=== PATIENT | female | born 1940 ===

== ENCOUNTER 2018-10-25 19:10 | Observation (INO) | payer MEDICAID ==
[2018-10-25 21:19] LABS: BASO # 0.1 K/uL (0.0-0.2); BASO % 1.3 % (0.0-2.0); EOS # 0.6 K/uL (0.0-0.7); EOS % 7.4 % (0.0-4.0); HEMOGLOBIN 13.1 g/dL (12.0-16.0); LYMPH # 1.7 K/uL (1.0-4.3); LYMPH % 22.1 % (20.0-40.0); MEAN CELL VOLUME 80.3 fl (81.0-99.0); MEAN CORPUSCULAR HEMOGLOBIN 25.9 pg (27.0-31.0); MEAN CORPUSCULAR HGB CONC 32.2 g/dL (33.0-37.0); MEAN PLATELET VOLUME 8.5 fl (7.2-11.7); MONO # 0.7 K/uL (0.0-0.8); MONO % 8.5 % (0.0-10.0); NEUT # 4.7 K/uL (1.8-7.0); NEUT % 60.7 % (50.0-75.0); RBC 5.05 Mil/uL (3.80-5.20); RED CELL DISTRIBUTION WIDTH 13.8 % (11.5-14.5); WHITE BLOOD COUNT 7.7 K/uL (4.8-10.8)
[2018-10-25] MEDS ORDERED: levoFLOXacin 750 mg in D5W 150 ML BAG IVPB STA (21:34)
--- NOTE | 2018-10-25 21:43 | ED PDOC ---
HPI: CCC, URI, Sore Throat Time Seen by Provider: 10/25/18 19:46 Chief Complaint (Nursing): Shortness Of Breath Chief Complaint (Provider): Cough History Per: Patient History/Exam Limitations: no limitations Onset/Duration Of Symptoms: Other (x1 week) Current Symptoms Are (Timing): Still Present Associated Symptoms: Cough Additional Complaint(s): 77 year old female, with a past medical history of HTN, diabetes, and high cholesterol, presents to the ED reporting cough with productive white phlegm for a week associated with chest tightness. Patient is also reporting rhinorrhea, subjective fever, chills, and x2 episodes of intermittent posttussive vomiting. She denies hemoptysis and diarrhea. Patient states she saw her doctor last Thursday who prescribed Azithromycin and cough medication with no improvement. PMD: Dr. Clint Leo Past Medical History Reviewed: Historical Data, Nursing Documentation, Vital Signs Vital Signs: Last Vital Signs Temp 97.7 F 10/25/18 19:30 Pulse 80 10/25/18 19:30 Resp 18 10/25/18 19:30 BP 133/70 10/25/18 19:30 Pulse Ox 96 10/25/18 19:30 - Medical History PMH: Diabetes, HTN, Hypercholesterolemia - Surgical History Surgical History: No Surg Hx - Family History Family History: States: No Known Family Hx - Social History Current smoker - smoking cessation education provided: No - Allergies Allergies/Adverse Reactions: Allergies Allergy/AdvReac Type Severity Reaction Status Date / Time No Known Allergies Allergy Verified 10/25/18 19:30 Review of Systems ROS Statement: Except As Marked, All Systems Reviewed And Found Negative Constitutional: Positive for: Fever (subjective), Chills ENT: Positive for: Other (Rhinorrhea) Cardiovascular: Positive for: Chest Pain (chest tightness) Respiratory: Positive for: Cough. Negative for: Hemoptysis Gastrointestinal: Positive for: Vomiting. Negative for: Diarrhea Physical Exam - Reviewed Nursing Documentation Reviewed: Yes Vital Signs Reviewed: Yes - Physical Exam Appears: Positive for: No Acute Distress (tired appearing) Skin: Positive for: Warm, Dry, Pallor ENT: Positive for: Pharynx Is (clear with no exudates) Respiratory: Positive for: Normal Breath Sounds. Negative for: Rales, Rhonchi, Wheezing, Respiratory Distress - Laboratory Results Result Diagrams: 10/25/18 21:15 - ECG O2 Sat by Pulse Oximetry: 96 (RA) Pulse Ox Interpretation: Normal Medical Decision Making Medical Decision Making: Initial Impression: cough Differential includes but not limited to bronchitis, pneumonia, flu, viral illness, and URI. Initial Plan: --ECG --CMP --Lact acid stat --CBC --Chest X-ray --Levaquin 750mg IV --Blood culture --Influenza A B stat Scribe Attestation: Documented by Blaise Allen acting as a scribe for Dede Miller MD. Provider Scribe Attestation: All medical record entries made by the Scribe were at my direction and personally dictated by me. I have reviewed the chart and agree that the record accurately reflects my personal performance of the history, physical exam, medical decision making, and the department course for this patient. I have also personally directed, reviewed, and agree with the discharge instructions and disposition. Disposition - Disposition
[2018-10-25] MEDS ORDERED: levoFLOXacin 750 mg in D5W 750 MG/150 ML BAG IVPB ONE (21:46)
[2018-10-25 22:31] LABS: ALB/GLOB RATIO 1.1 (1.0-2.1); ALBUMIN 4.1 g/dL (3.5-5.0); ALT/SGPT 15 U/L (9-52); AST/SGOT 19 U/L (14-36); BLOOD UREA NITROGEN 27 mg/dl (7-17); CALCIUM 9.7 mg/dL (8.4-10.2); GFR NON-AFRICAN AMERICAN > 60
[2018-10-26] MEDS ORDERED: Promethazine 6.25 MG/5 ML CUP PO PRN (06:33)
[2018-10-26] MEDS ORDERED: Albuterol HFA 90 mcg/actuation (8 g) INH PRN (06:33)
[2018-10-26] MEDS: Sodium Chloride 0.45% 1,000 ML IV SCH (06:47)
[2018-10-26] MEDS: Insulin Regular 100 units/ml SC SCH ×3 (07:24→21:16)
[2018-10-26] MEDS: Metoprolol Succinate 25 mg XL Tab PO SCH (08:35)
[2018-10-26] MEDS: Enoxaparin 40 mg Syringe SC SCH (08:36)
[2018-10-26] MEDS: Naproxen 500 MG TAB PO SCH ×2 (08:36→21:14)
[2018-10-26 08:58] LABS: HEMOGLOBIN 12.8 g/dL (12.0-16.0); MEAN CELL VOLUME 82.2 fl (81.0-99.0); MEAN CORPUSCULAR HEMOGLOBIN 26.3 pg (27.0-31.0); RBC 4.86 Mil/uL (3.80-5.20); RED CELL DISTRIBUTION WIDTH 13.9 % (11.5-14.5)
[2018-10-26] MEDS ORDERED: levoFLOXacin 750 mg in D5W 150 ML BAG IVPB SCH (09:00)
[2018-10-26 09:17] LABS: ALB/GLOB RATIO 1.1 (1.0-2.1); ALT/SGPT 29 U/L (9-52); AST/SGOT 22 U/L (14-36); BLOOD UREA NITROGEN 25 mg/dl (7-17); CALCIUM 9.4 mg/dL (8.4-10.2); GFR NON-AFRICAN AMERICAN > 60; HDL CHOLESTEROL 48 MG/DL (30-70)
[2018-10-26 09:24] LABS: LDL CHOLESTEROL 89 mg/dL (0-129)
--- NOTE | 2018-10-26 09:34 | CP.PCM.HP ---
<Jeannette Johnson - Last Filed: 10/26/18 16:59> History of Present Illness - History of Present Illness History of Present Illness: Pt is a 77 y/o male with hx of HTN, HLD, Asthma, and DM who presented to [facility] with complaints of productive cough and weakness x1 week. Pt states cough kept him up at night and he had one episode of vomiting after profuse coughing. Denies chest pain, sob, headache, n/v/d, dysuria, recent travel, sick contacts, or fever/chills. Pt was admitted for Bronchitis vs pnu vs viral illness. Present on Admission - Present on Admission Any Indicators Present on Admission: No Past Patient History - Past Medical History & Family History Past Medical History?: Yes - Past Social History Smoking Status: Never Smoked - CARDIAC Hx Cardiac Disorders: Yes Hx Hypercholesterolemia: Yes Hx Hypertension: Yes - PULMONARY Hx Respiratory Disorders: No - NEUROLOGICAL Hx Neurological Disorder: No - HEENT Hx HEENT Problems: No - RENAL Hx Chronic Kidney Disease: No - ENDOCRINE/METABOLIC Hx Endocrine Disorders: Yes Hx Diabetes Mellitus Type 2: Yes - HEMATOLOGICAL/ONCOLOGICAL Hx Blood Disorders: No Hx AIDS: No Hx Hepatitis C: No Hx Human Immunodeficiency Virus (HIV): No - INTEGUMENTARY Hx Dermatological Problems: No - MUSCULOSKELETAL/RHEUMATOLOGICAL Hx Musculoskeletal Disorders: Yes Hx Falls: Yes (fell 1 month ago, denies any injuries) - GASTROINTESTINAL Hx Gastrointestinal Disorders: No - GENITOURINARY/GYNECOLOGICAL Hx Genitourinary Disorders: No - PSYCHIATRIC Hx Psychophysiologic Disorder: No Hx Substance Use: No - SURGICAL HISTORY Hx Surgeries: Yes Hx Cholecystectomy: Yes (4 yrs ago) - ANESTHESIA Hx Anesthesia: Yes Hx Anesthesia Reactions: No Meds Allergies/Adverse Reactions: Allergies Allergy/AdvReac Type Severity Reaction Status Date / Time No Known Allergies Allergy Verified 10/25/18 19:30 Physical Exam - Constitutional Appears: No Acute Distress - Head Exam Head Exam: NORMAL INSPECTION - Eye Exam Eye Exam: Normal appearance - ENT Exam ENT Exam: Mucous Membranes Moist - Neck Exam Neck exam: Positive for: Full Rom - Respiratory Exam Respiratory Exam: Rales (mild in R mid lobe), Rhonchi. absent: Wheezes - Cardiovascular Exam Cardiovascular Exam: REGULAR RHYTHM, +S1, +S2. absent: Systolic Murmur - GI/Abdominal Exam GI & Abdominal Exam: Normal Bowel Sounds, Soft. absent: Tenderness - Extremities Exam Extremities exam: Positive for: normal inspection. Negative for: pedal edema - Neurological Exam Neurological exam: Alert - Psychiatric Exam Psychiatric exam: Normal Affect - Skin Skin Exam: Normal Color Results - Vital Signs Recent Vital Signs: Last Vital Signs Temp 98.2 F 10/26/18 08:12 Pulse 58 L 10/26/18 08:35 Resp 18 10/26/18 08:12 BP 112/68 10/26/18 08:35 Pulse Ox 95 10/26/18 08:12 - Labs Result Diagrams: 10/26/18 08:40 10/26/18 08:40 Labs: Laboratory Results - last 24 hr 10/25/18 10/25/18 10/25/18 21:15 21:15 21:15 WBC 7.7 RBC 5.05 Hgb 13.1 Hct 40.6 MCV 80.3 L MCH 25.9 L MCHC 32.2 L RDW 13.8 Plt Count 217 MPV 8.5 Neut % (Auto) 60.7 Lymph % (Auto) 22.1 Foard % (Auto) 8.5 Eos % (Auto) 7.4 H Baso % (Auto) 1.3 Neut # (Auto) 4.7 Lymph # (Auto) 1.7 Foard # (Auto) 0.7 Eos # (Auto) 0.6 Baso # (Auto) 0.1 Sodium 142 Potassium 4.4 Chloride 112 H Carbon Dioxide 24 Anion Gap 10 BUN 27 H Creatinine 0.9 Est GFR ( Amer) > 60 Est GFR (Non-Af Amer) > 60 POC Glucose (mg/dL) Random Glucose 100 Lactic Acid Calcium 9.7 Total Bilirubin 0.3 AST 19 ALT 15 Alkaline Phosphatase 65 Total Protein 7.8 Albumin 4.1 Globulin 3.7 Albumin/Globulin Ratio 1.1 Triglycerides Cholesterol LDL Cholesterol Direct HDL Cholesterol Influenza Typ A,B (EIA) Negative for flu a/b 10/25/18 10/26/18 10/26/18 21:15 05:46 08:40 WBC 7.0 RBC 4.86 Hgb 12.8 Hct 39.9 MCV 82.2 MCH 26.3 L MCHC 32.0 L RDW 13.9 Plt Count 230 MPV Neut % (Auto) Lymph % (Auto) Foard % (Auto) Eos % (Auto) Baso % (Auto) Neut # (Auto) Lymph # (Auto) Foard # (Auto) Eos # (Auto) Baso # (Auto) Sodium Potassium Chloride Carbon Dioxide Anion Gap BUN Creatinine Est GFR ( Amer) Est GFR (Non-Af Amer) POC Glucose (mg/dL) 99 Random Glucose Lactic Acid 1.1 Calcium Total Bilirubin AST ALT Alkaline Phosphatase Total Protein Albumin Globulin Albumin/Globulin Ratio Triglycerides Cholesterol LDL Cholesterol Direct HDL Cholesterol Influenza Typ A,B (EIA) 10/26/18 08:40 WBC RBC Hgb Hct MCV MCH MCHC RDW Plt Count MPV Neut % (Auto) Lymph % (Auto) Foard % (Auto) Eos % (Auto) Baso % (Auto) Neut # (Auto) Lymph # (Auto) Foard # (Auto) Eos # (Auto) Baso # (Auto) Sodium 143 Potassium 4.5 Chloride 110 H Carbon Dioxide 27 Anion Gap 11 BUN 25 H Creatinine 0.8 Est GFR ( Amer) > 60 Est GFR (Non-Af Amer) > 60 POC Glucose (mg/dL) Random Glucose 104 Lactic Acid Calcium 9.4 Total Bilirubin 0.5 AST 22 ALT 29 Alkaline Phosphatase 58 Total Protein 7.5 Albumin 4.0 Globulin 3.6 Albumin/Globulin Ratio 1.1 Triglycerides 198 H Cholesterol 166 LDL Cholesterol Direct 89 HDL Cholesterol 48 Influenza Typ A,B (EIA) Assessment & Plan - Assessment and Plan (Free Text) Assessment: y/o male with hx of HTN, HLD, Asthma, and DM with complaints of productive cough. Cough -Slight improvement today -Cxray negative as per report -No leukocytosis -BUN elevated + Age qualifies admisssion for CURB 63 -C/W levaquin -F/U Bcx, Sputum Cx, and Influenza -ECG NSR -home meds continued <Clint Leo K - Last Filed: 10/27/18 18:46> Results - Vital Signs Recent Vital Signs: Last Vital Signs Temp 97.8 F 10/27/18 09:00 Pulse 87 10/27/18 09:27 Resp 20 10/27/18 09:00 BP 128/76 10/27/18 09:27 Pulse Ox 96 10/27/18 09:00 - Labs Result Diagrams: 10/26/18 08:40 10/26/18 08:40 Labs: Laboratory Results - last 24 hr 10/26/18 10/26/18 10/27/18 13:50 21:15 05:41 POC Glucose (mg/dL) 86 88 Cold Agglutinins Negative Ur L.pneumophila Ag Negative 10/27/18 11:51 POC Glucose (mg/dL) 107 Cold Agglutinins Ur L.pneumophila Ag Assessment & Plan - Assessment and Plan (Free Text) Assessment: Patient was personally seen and examined by me in rounds with residents. Available labs and diagnostic data reviewed. Case, Patient's condition and management plan discussed with residents in rounds. Agree with resident's progress note. Plan: As ordered.
--- NOTE | 2018-10-26 11:28 | RAD ---
Date of service: 10/25/2018 HISTORY: COUGH SOB COMPARISON: No prior. TECHNIQUE: Chest PA and lateral FINDINGS: LUNGS: Increased interstitial markings etiology, acuity are are unknown. No discrete infiltrates or masses. PLEURA: No significant pleural effusion identified. No pneumothorax apparent. CARDIOVASCULAR: No aortic atherosclerotic calcification present. Normal cardiac size. No pulmonary vascular congestion. OSSEOUS STRUCTURES: No significant abnormalities. VISUALIZED UPPER ABDOMEN: Normal. OTHER FINDINGS: None. IMPRESSION: Interstitial lung disease without focal infiltrate or mass
--- NOTE | 2018-10-26 12:04 | CARD ---
APPROVED REPORT Date of service: 10/25/2018 EKG Measurement Heart [id number] <Conclusion> Normal sinus rhythm Normal Electrocardiogram
[2018-10-26] MEDS ORDERED: Alum-Mag Hydrox-Simethicone Susp (30 mL) PO PRN (12:29)
[2018-10-26] MEDS ORDERED: Sodium Chloride 3% for Inhalation 4 ML VIAL.NEB IH PRN (12:57)
[2018-10-26 21:15] LABS: LEGIONELLA AG URINE NEGATIVE (NEGATIVE)
[2018-10-27 00:52] VITALS: TEMP 97.8
[2018-10-27] MEDS: Sodium Chloride 0.45% 1,000 ML IV SCH (02:26)
[2018-10-27] MEDS: Insulin Regular 100 units/ml SC SCH (08:12)
[2018-10-27] MEDS: Naproxen 500 MG TAB PO SCH (09:11)
[2018-10-27] MEDS: Enoxaparin 40 mg Syringe SC SCH ×2 (09:15→09:19)
[2018-10-27 09:22] VITALS: RESP 20; O2SAT 96
[2018-10-27] MEDS: Metoprolol Succinate 25 mg XL Tab PO SCH (09:27)
[2018-10-27 09:28] VITALS: BP 128/76; PULSE 87
--- NOTE | 2018-10-27 10:48 | PN ---
DATE: 10/27/2018 SUBJECTIVE: The patient seen and examined. Interim events noted. The patient remains in regular medical floor. The patient feels much better. No cough or shortness of breath. Chest pain improved remarkably. No new complaint other than the patient not being able to sleep in the hospital. PHYSICAL EXAMINATION: GENERAL: The patient is in no acute distress. VITAL SIGNS: Stable. HEART: S1 and S2 normal and regular. LUNGS: Good bilateral air exchange. ABDOMEN: Soft and nontender. EXTREMITIES: No edema. No calf swelling. No tenderness. No acute ischemia. CENTRAL NERVOUS SYSTEM: Essentially unchanged. DIAGNOSTIC DATA: Available diagnostic data reviewed. Chest x-ray improved. ASSESSMENT AND PLAN: Overall, the patient is medically stable. Plan as ordered. Clint Leo MD
[2018-10-27 12:24] LABS: COLD AGGLUTININ NEGATIVE (NEGATIVE)
== END 2018-10-27 14:43 | disposition home or self-care (01) ==
LOC: H.ER 19:10 → H.ERHOLD 22:39 → H.MEDSURG1 10-26 01:23
PROVIDERS: ADMIT Internal Medicine; ATTEND Internal Medicine
DX: R05 Cough (principal); I10 Essential (primary) hypertension; E78.5 Hyperlipidemia, unspecified; J45.909 Unspecified asthma, uncomplicated; E11.9 Type 2 diabetes mellitus without complications; E78.00 Pure hypercholesterolemia, unspecified; R53.1 Weakness; R11.10 Vomiting, unspecified
CPT/HCPCS: 36415; 71046; 80053; 80061; 82948; 83605; 84443; 85025; 85027; 86738; 87040; 87070; 87116; 87449; 87804; 93005; 96365; 96366; 96372; 99284; G0378; J1650; J7030